=== PATIENT | female | born 1960 | race Caucasian/White ===

== ENCOUNTER → 2020-06-29 | Outpatient (CLI) | payer OTHER | END | disposition home or self-care (01) | LOC: LABWHC1 15:17 | PROVIDERS: ATTEND Family Medicine | DX: Z03.818 Encounter for observation for suspected exposure to other biological agents ruled out (principal) | CPT/HCPCS: U0003; C9803 ==

== ENCOUNTER 2023-12-11 10:10 | Day surgery (SDC) | payer OTHER ==
[2023-12-07 16:10] VITALS: BMI 36.1
[~2023-12-11 10:10] MED LIST: LACTATED RINGERS 1,000 ML BAG ONE; PROPOFOL 10 MG/ML 20 ML VIAL IV ONE
== END 2023-12-11 10:57 | disposition home or self-care (01) ==
LOC: ORWHC2ENDO 10:10
PROVIDERS: ATTEND Surgery
DX: Z12.11 Encounter for screening for malignant neoplasm of colon (principal); I10 Essential (primary) hypertension; E07.9 Disorder of thyroid, unspecified; Z79.890 Hormone replacement therapy; Z79.899 Other long term (current) drug therapy
CPT/HCPCS: 45378